=== PATIENT | female | born 1990 | race Caucasian/White ===

== ENCOUNTER 2018-04-24 12:54 | Emergency (ER) | payer OTHER ==
[~2018-04-24] VITALS: Ht 162.6 cm; Wt 100.0 kg
[2018-04-24 13:16] VITALS: Ht 162.6 cm; Wt 100.0 kg
[2018-04-24] MEDS ORDERED: TORADOL10 MG PO (14:52)
[2018-04-24 15:11] VITALS: BP 127/95
== END 2018-04-24 15:11 | disposition home or self-care (01) ==
LOC: D.ER 12:54
DX: S99.912A Unspecified injury of left ankle, initial encounter (principal); X50.1XXA Overexertion from prolonged static or awkward postures, initial encounter; Y93.89 Activity, other specified; Y92.019 Unspecified place in single-family (private) house as the place of occurrence of the external cause

== ENCOUNTER 2019-04-22 04:26 | Emergency (ER) | payer MEDICAID ==
[~2019-04-22 04:26] MED LIST: TORADOL10 MG PO
[2019-04-22 04:30] VITALS: BP 108/78; BMI 39.5
[2019-04-22] MEDS ORDERED: TIROSINT125 MCG PO (04:31)
[2019-04-22] MEDS ORDERED: METOPROLOL TART50 MG PO (04:31)
[2019-04-22] MEDS ORDERED: SULFAMETHOXAZOL1 TA3 PO (04:32)
[2019-04-22] MEDS ORDERED: VITAMIN D250000 UNIT PO (04:32)
[2019-04-22] MEDS ORDERED: FLAGYL500 MG PO (04:32)
[2019-04-22] MEDS ORDERED: NAPROSYN500 MG PO (05:17)
== END 2019-04-22 05:36 | disposition home or self-care (01) ==
LOC: D.ER 04:26
DX: G56.01 Carpal tunnel syndrome, right upper limb (principal)

== ENCOUNTER 2020-04-11 19:33 | Inpatient (IN) | payer MEDICAID ==
[~2020-04-11] VITALS: Ht 165.1 cm; Wt 114.1 kg
[~2020-04-11 19:33] MED LIST changes: +FLAGYL500 MG PO; +METOPROLOL TART50 MG PO; +NAPROSYN500 MG PO; +SULFAMETHOXAZOL1 TA3 PO; +TIROSINT125 MCG PO; +VITAMIN D250000 UNIT PO
[2020-04-11] MEDS ORDERED: PROCARDIA10 MG PO (20:13)
[2020-04-11] MEDS ORDERED: GLYBURIDE5 M1 PO (20:14)
[2020-04-11] MEDS ORDERED: BAYER CHEWABLE81 MG PO (20:15)
[2020-04-11] MEDS ORDERED: PRENAVITE1 TAB PO (20:15)
[2020-04-11 20:33] VITALS: BP 136/85; Ht 165.1 cm; Wt 114.1 kg
[2020-04-11 21:13] LABS: HEMATOCRIT 38.4 % (36.0-48.0); HEMOGLOBIN 12.7 g/dL (12-16); MCH 27.8 pg (26.0-34.0); MCHC 33.1 g/dL (31.0-37.0); MEAN PLATELET VOLUME 10.2 fL (7.4-10.4); RBC 4.57 10x6/uL (4.00-5.40); RDW 13.4 % (11.5-14.5); WBC 8.7 10x3/uL (4.8-10.8)
[2020-04-11 21:32] LABS: CALC OSMOLALITY 274 mosm/kg (275-300); CALCIUM 8.8 mg/dL (8.5-10.1); CARBON DIOXIDE 19.4 mmol/L (21.0-32.0); CHLORIDE - SERUM 106 mmol/L (98-107); CREATININE - SERUM 0.7 mg/dL (0.6-1.3); GLUCOSE 96 mg/dL (74-106); POTASSIUM - SERUM 3.5 mmol/L (3.5-5.1); SODIUM 137 mmol/L (136-145); UREA NITROGEN 14 mg/dL (7-18); eGFR NON AFRICAN AMERICAN > 90 mL/min (90-120)
[2020-04-11 21:34] LABS: BILIRUBIN NEGATIVE (NEGATIVE); GLUCOSE NEGATIVE (NEGATIVE); KETONE NEGATIVE (NEGATIVE); NITRITE NEGATIVE (NEGATIVE); SPECIFIC GRAVITY 1.025 (1.005-1.020); UROBILINOGEN NORMAL (NORMAL)
[2020-04-11 21:36] LABS: BACTERIA MODERATE /hpf (NEGATIVE); EPITHELIAL CELLS 0-5 /hpf (0-5); RED CELLS - URINE OCC /hpf (0-5)
[2020-04-11 21:36] LABS: ALT (SGPT) 19 U/L (10-68); URIC ACID 4.9 mg/dL (2.6-7.2)
[2020-04-11 22:09] LABS: APTT 27.3 SECONDS (22.8-39.4); INR 0.93 (0.85-1.17); PROTIME 12.5 SECONDS (11.6-15.0)
[2020-04-12] VITALS (11 sets, daily range): BP systolic 119–146; BP diastolic 64–94
--- NOTE | 2020-04-12 13:03 | NUR ---
LIVE MALE BABY @ 1252 PLACENTA @ 1933
--- NOTE | 2020-04-12 13:16 | NUR ---
PLACENTA NOT TO BE SENT PER DR BURLESON ABG NOT TO BE COLLECTED PER DR BURLESON
--- NOTE | 2020-04-12 14:06 | NUR ---
1402 - PT PERIPAD CHANGED, FIRST ONE 75% SATURATED
--- NOTE | 2020-04-12 14:15 | NUR ---
TO ROOM 1273 VIA BED ROOM RR. AWAKE AND VERBAL RESPONSES APPRO TO QUESTIONS. MOVES UPPER EXTREMITIES AT WILL. IV RT HAND -UP 1000CC NS WITH PITOCIN 20 UNITS AT 125CC/HR. ABD DRESSING PRESENT- LOWER ABD- CD&I. FUNDUS UU-FIRM WITH MASSAGE. SMALL LOCHIA NOTED ON PAD. ICE CAP TO ABD. SCD'S PLACED. GARRISON WITH 100CC URINE IN BAG. MED FOR PAIN PER ANESTHESIA.
--- NOTE | 2020-04-12 14:38 | NUR ---
REQUESTING DIET SPRITE. ALSO RATES PAIN A 9 ON SCALE OF 0-10.
--- NOTE | 2020-04-12 14:38 | NUR ---
FUNDUS MASSAGED- SMALL CLOTS. SM TO MOD LOCHIA-ADRIA PADS CHANGED.
--- NOTE | 2020-04-12 14:45 | NUR ---
Syd OBRIEN RN IN ROOM -FUNDUS UU- MUCOUS BLOOD DISCHARGE SM AMT WITH MASSAGE. PT CO PAIN- CRAMPING -REQUESTING PAIN MEDICATION-RATES PAIN A 10 ON SCALE OF 0-10.
--- NOTE | 2020-04-12 15:02 | NUR ---
SMALL CLOT X1 ON PAD. STATES THAT PAIN IS BETTER. RATES PAIN A 4 ON SCALE OF 0-10.
--- NOTE | 2020-04-12 15:31 | NUR ---
FUNDUS UU-FIRM. SMALL LOCHIA NOTED ON PAD WITH CLOT [id number]. PADS CHANGED AND PERINEAL AREA CLEANSED. STATES THAT PAIN IS BETTER. BABY TO BREAST.
--- NOTE | 2020-04-12 16:23 | NUR ---
pt states that bp was taken on her leg at 1604. bp rechecked and 135/81.
--- NOTE | 2020-04-12 16:30 | NUR ---
entered room- pt has cpap on herself and awakens when enter.states she wants to sleep. small to mod lochia noted on kenneth pad. fundal massage- fundus divated slighty to lt side but post massage more midline and uu. no clots noted. toñito man rn also at bedside.
--- NOTE | 2020-04-12 16:38 | NUR ---
clear liq diet served.
--- NOTE | 2020-04-12 16:57 | NUR ---
DR BURLEOSN IN UNIT- REPORT OF URINE OUTPUT DOWN PAST HOUR TO 15CC, LOCHIA, FUNDUS DIVATED TO LT SIDE. NEW ORDER RECEIVED. DR BURLESON STATES DO NOT NEED TO REPEAT FSBS.
--- NOTE | 2020-04-12 17:24 | NUR ---
sm to mod mucous/lochia- clot x1.
--- NOTE | 2020-04-12 18:10 | NUR ---
infant at breast at this time. no requests.
--- NOTE | 2020-04-12 18:40 | NUR ---
noted iv in rt hand infiltrated- d/c and pressure held. iv restarted lt hand using 20g cath. iv fluids of ns with pitocin 20units restarted at 125cc/hr per pump. lr bolus complete.
--- NOTE | 2020-04-12 19:00 | NUR ---
REPORT RECEIVED FROM AM SHIFT TO ASSUME PT CARE.
--- NOTE | 2020-04-12 19:15 | NUR ---
PATIENT CALLED OUT FOR PAIN MEDICINE AT THIS TIME
--- NOTE | 2020-04-12 19:30 | NUR ---
DILAUDID GIVEN PER PT REQUEST, SEE EMAR.
--- NOTE | 2020-04-12 19:32 | NUR ---
SHIFT ASSESSMENT COMPLETED, SEE FLOWSHEET
--- NOTE | 2020-04-12 19:45 | NUR ---
SANDWICH TRAY AND DIET COKE PROVIDED PER PT REQUEST.
--- NOTE | 2020-04-12 20:30 | NUR ---
PT REC'D SITTING UP HOLDING , FUNDUS FIRM, U-1, LOCHIA SMALL, ADRIA PADS CHANGED, UNDER PADS CHANGED, GARRISON UROMETER EMPTIED W/ 125ML RAMIN COLORED URINE IN CHAMBER, POC DISCUSSED FOR THE NIGHT W/O SIGNS OF DISTRESS
--- NOTE | 2020-04-12 21:22 | NUR ---
PT HEPATOLOGY PHYSICIAN LIGHT, IV BEEPING, NEW BAG OF NS WITH PITOCIN HUNG VIA PUMP INFUSING AT 125 ML/HR, PT DENIES NEEDS AT THIS TIME, FOB HOLDING
--- NOTE | 2020-04-12 22:15 | NUR ---
PT HOLDING INFANT, RATES INC PAIN 02/23, INFORMED PT THAT PAIN MED WILL BE DUE ABOUT 11:30PM, PT VERBALIZES UNDERSTANDING, STATES "THAT'S FINE", PT REQUESTED AND SERVED FRESH H20, DENIES FURTHER NEEDS, FOB FILLING OUT NSY PAPERWORK
[2020-04-13 00:14] VITALS: BP 127/60
--- NOTE | 2020-04-13 00:14 | NUR ---
PT GETTING READY TO FEED , ADM TORADOL SIVP PER MD ORDERS, SEE EMAR, INFORMED PT WILL D/C GARRISON AND SALINE LOCK IV SHORTLY, PT VERBALIZES UNDERSTANDING, WILL BEGIN PO PAIN MED AT THIS TIME, VS OBTAINED, FOB HOLDING
--- NOTE | 2020-04-13 00:23 | NUR ---
ADM PERCOCET PER MD ORDERS, SEE EMAR, WITH FRESH H20
--- NOTE | 2020-04-13 01:10 | NUR ---
PT AROUSES TO OPENING OF DOOR, IV CONVERTED TO SALINE LOCK, FLUSHED WITH 10 MLS OF NS WITH NO DIFFICULTY, GARRISON CATH REMOVED, TIP INTACT, EMPTIED 1100 MLS OF DARK YELLOW URINE FROM GARRISON BAG, PT INST ON AND VERBALIZES UNDERSTANDING OF USING CALL LIGHT FOR ME TO COME HELP HER FOR HER FIRST TIME UP, ADRIA CARE DONE WITH WET WARM WASH CLOTHS, MOD BLEEDING NOTED WITH NO CLOTS, WHITE CHUX AND ADRIA PAD CHANGED, FRESH ICE PACK TO ABD, PT INQUIRES ABOUT SCD'S, INFORMED PT THAT THEY HAD TO STAY ON WHILE IN BED, PT VERBALIZES UNDERSTANDING, PT REPORTS "PAIN IS BETTER", DID NOT RATE WITH A NUMBER, PT JUST READY TO GET SOME REST, DENIES FURTHER NEEDS, IN OPEN CRIB CART NEXT TO FOB ON COUCH
--- NOTE | 2020-04-13 01:40 | NUR ---
PATIENT ASSISTED UP TO BATHROOM, DENIES NEEDING TO VOID. TOWELS PLACED ON FLOOR TO AVOID FALLS. PT TO SHOWER, PROVIDED WITH SOAP,SHAMPOO AND WASH RAGS. WELL CLEAN TOWELS AND GOWN. ENCOURAGED TO USE SHOWER CHAIR AND CALL WITH ANY NEEDS.
--- NOTE | 2020-04-13 02:00 | NUR ---
PATIENT FINISHED SHOWERING, CLEAN PADS AND PANTIES PLACED, DRESSING WAS REMOVED IN SHOWER. INCISION IS WELL APPROXIAMATED, CLOSED WITH GLUE. NO REDNESS, SWELLING OR DRAINAGE NOTED. PT PROVIDED WITH ICE PACK AND ICE WATER AT THIS TIME. NO FURTHER NEEDS IDENTIFIED. WILL CONTINUE TO MONITOR
[2020-04-13 04:39] VITALS: BP 114/73
--- NOTE | 2020-04-13 04:40 | NUR ---
PATIENT RESTING QUIETLY WITH EYES CLOSED. EASILY AROUSED TO VERBAL. PT STATES THAT HER PAIN IS A 6/10. PERCOCET 10/325 MG PO PER MD ORDERS. SEE EMAR.
[2020-04-13 07:13] LABS: RAPID PLASMA REAGIN Non Reactive (Non Reactive)
[2020-04-13 08:30] VITALS: BP 132/60
--- NOTE | 2020-04-13 08:35 | NUR ---
DR. RUSHING ON UNIT, TO ROOM TO SPEAK WITH PT. MD EXAMINES PT. LOW TRANSVERSE INCISION C/D/I. SEE EMAR FOR ALL MEDS ADM BY THIS RN. PT DENIES NEEDS AT THIS TIME. SR UP X2, CALL LIGHT AND PHONE WITHIN REACH.
--- NOTE | 2020-04-13 10:10 | NUR ---
PT AMBULATORY IN ROOM AT THIS TIME. PT DENIES NEEDS AT THIS TIME. SRUP X2, CALL LIGHT AND PHONE WITHIN REACH.
[2020-04-13 11:46] LABS: BASOPHILS 0.1 % (0-2); EOSINOPHILS 0.5 % (0-7); IMMATURE GRANULOCYTES 0.3 % (0-5); LYMPHOCYTES 10.3 % (15-50); MCH 27.4 pg (26.0-34.0); MCHC 32.3 g/dL (31.0-37.0); MCV 84.7 fL (80.0-100.0); MEAN PLATELET VOLUME 9.5 fL (7.4-10.4); MONOCYTES 10.2 % (2-11); NEUTROPHILS 78.6 % (40-80); PLATELET COUNT 203 10x3/uL (130-400); RDW 13.6 % (11.5-14.5); WBC 9.1 10x3/uL (4.8-10.8)
[2020-04-13 11:50] LABS: HEMATOCRIT 28.8 % (36.0-48.0); HEMOGLOBIN 9.3 g/dL (12-16)
--- NOTE | 2020-04-13 12:00 | MORECARE ---
CASE MANAGEMENT DISCHARGE SUMMARY PATIENT: YADIRA MORALES UNIT: [id number] ADM DATE: 04/11/20 AGE: 29 : 88 SEX: F ROOM/BED: D.1273 AUTHOR: MANA LUNA PHYSICIAN: REFERRING PHYSICIAN: PETER BURLESON MD DATE OF SERVICE: 04/13/20 Discharge Plan Patient Name: YADIRA MORALES Facility: [facility]:[place] : 1990 Planned Disposition: Home Anticipated Discharge Date: 04/16/20 Discharge Date: Expected LOS: 5 Initial Reviewer: [email or web address] Initial Review Date: 04/11/2020 Generated: 04/13/20 12:59 pm Patient Name: YADIRA MORALES Page [phone] at 1200 All edits/amendments must be made on the electronic document DICTATION DATE: 04/13/20 1159 WIRE ROPE SALES REPRESENTATIVE: DM 04/13/20 1159 RPT#: [id number] DC DATE: STATUS: ADM IN [facility] [address] [place] [address] END OF REPORT
--- NOTE | 2020-04-13 12:20 | NUR ---
TO PT'S ROOM, PT IS SITTING ON SOFA, WITH LEGS PULLED UP, PT DENIES NEEDS AT THIS TIME, DENIES NEEDING PAIN MEDICATION. PT STATES SHE HAS PASSED GAS. DENIES ALL OTHER NEEDS AT THIS TIME.
--- NOTE | 2020-04-13 14:45 | NUR ---
PT AMBULATORY IN ROOM TENDING TO INFANT. PT REQUESTS PAIN MEDICATION. SEE EMAR FOR ALL MEDS ADM BY THIS RN. PT DENIES ALL OTHER NEEDS. SRUP X2, CALL LIGHT AND PHONE WITHIN REACH.
[2020-04-13 19:46] VITALS: BP 128/74
--- NOTE | 2020-04-13 19:46 | NUR ---
SHIFT ASSESSMENT COMPLETED, SEE FLOWSHEET. PATIENT LYING IN BED WITH SIGNIFICANT OTHER, STATES THAT HER BLEEDING IS LIGHT AND SHE HAS PLENTY OF PADS AND PANTIES. INCISION WELL APPROXIAMATED, CLOSED WITH GLUE, NO SWELLING,REDNESS OR DRAINAGE NOTED. PT DENIES NEEDS AT THIS TIME, WILL CONTINUE TO MONITOR
--- NOTE | 2020-04-13 20:27 | NUR ---
PERCOCET 10/325MG PO AND TORADOL 10MG PO PER MD ORDERS AND PT REQUEST. SEE EMAR. ICE WATER PROVIDED, NO FURTHER NEEDS IDENTIFIED.
--- NOTE | 2020-04-13 21:19 | NUR ---
PATIENT SITTING ON COUCH INFANT. DENIES NEEDS.WILL CONTINUE TO MONITOR.
--- NOTE | 2020-04-13 21:23 | NUR ---
PATIENT CALLED OUT LANDSCAPE PAINTER CHAN, UPON ENTERING THE ROOM THE PT NOTED TO BE STANDING IN THE BATHROOM STATING THAT SHE IS HAVING SHARP PAIN IN HER ABDOMEN. INCISION INSPECTED, INTACT WITH GLUE. BLEEDING NOTED TO BE SCANT RUBRA. WILL BRING PT MEDICATION FOR GAS PAIN.
--- NOTE | 2020-04-13 21:28 | NUR ---
SIMETHICONE ADMINISTERED. SEE EMAR.
--- NOTE | 2020-04-13 21:30 | NUR ---
PATIENT ENCOURAGED TO AMBULATE TO RELIEVE THE GAS PAIN
--- NOTE | 2020-04-13 21:45 | NUR ---
PATIENT AND SIGNIFICANT OTHER AMBULATING IN [place] WITH IN OPEN CRIB. TO NURSERY AND PT AND SIGNIFICANT OTHER CONTINUE TO AMBULATE. PT STATES THAT THE PAIN GOES AWAY WHEN SHE WALKS.
--- NOTE | 2020-04-13 21:56 | NUR ---
PATIENT BACK TO ROOM WITH AT THIS TIME. NO NEEDS IDENTIFIED. WILL CONTINUE TO MONITOR.
--- NOTE | 2020-04-14 00:10 | NUR ---
SHIRT AND BLANKET PROVIDED TO MOTHER FOR , STATES THAT SHE FED HIM A BOTTLE AND HE THREW IT ALL UP. PT TEACHING COMPLETED ON BOTTLE FEEDING AND BREAST FEEDING AT THIS TIME. PT STATES THAT SHE IS GOING TO GET SOME SLEEP AND WILL TRY TO BREASTFEED AT 0100, ALSO REQUESTS A PAIN PILL AT THAT TIME.
--- NOTE | 2020-04-14 00:30 | NUR ---
PT WORRIED THAT HER STITCHES ARE RIPPING ON THE INSIDE. INCISION INSPECTED, SMALL SPOT OF DRIED BLOOD NOTED FROM LEFT SIDE OF INCISION. SPOT CLEANED AND PERIPAD PLACED ON ABDOMEN TO DECREASE MOISTURE. WILL MONITOR FOR FURTHER BLEEDING.
--- NOTE | 2020-04-14 01:10 | NUR ---
percocet 10/325mg and simethicone 80 mg po administered at this time per pt request.
--- NOTE | 2020-04-14 01:14 | NUR ---
traci provided per pt request. states that she will take it in a minute due to infant at this time.
--- NOTE | 2020-04-14 02:30 | NUR ---
PATIENT SLEEPING, WILL HOLD TORADOL ADMINISTRATION.
--- NOTE | 2020-04-14 04:15 | NUR ---
PATIENT RESTING QUIETLY WITH EYES CLOSED, RESPIRATIONS EVEN AND NON LABORED. CPAP IN PLACE. WILL CONTINUE TO MONITOR
--- NOTE | 2020-04-14 06:30 | NUR ---
PATIENT SLEEPING WITH CPAP IN PLACE. NO DISTRESS NOTED. WILL CONTINUE TO MONITOR.
--- NOTE | 2020-04-14 07:20 | NUR ---
ASSUMED CARE OF THIS PATIENT. SITTING UP IN BED GETTING READY TO EAT BREAKFAST. ASKED ABOUT BABY WHO IS CURRENTLY IN NURSERY. 05/25 LOW ABDOMINAL ACHING. DOES NOT DESIRE PAIN MEDICATION NOW BUT WOULD LIKE PERCOCET AND TORADOL WHEN IT IS DUE. READY TO GO HOME. VISITOR ON COUCH. NON-SMOKER, 0+ RUBELLA IMMUNE, DTAP STATUS UNKOWN. DESIRES TDAP IF IT IS DUE. SLEEPS USING CPAP. WILL COMPLETE SHIFT ASSESSMENT AFTER BREAKFAST.
[2020-04-14 08:16] VITALS: BP 125/69
--- NOTE | 2020-04-14 08:22 | NUR ---
PERCOCET 10 MG GIVEN WITH SCHEDULED TORADOL FOR 05/25 INCISIONAL ACHING. DISCUSSED ABDOMINAL BINDER, DECLINES AT THIS TIME. READY TO GO HOME. FOB AND IN ROOM. TO CALL IF ANYTHING IS NEEDED.
--- NOTE | 2020-04-14 10:19 | NUR ---
SITTING UP ON COUCH . DR RUSHING IN ROOM. DR BARNES ALSO VISITED. PAIN IS BETTER, NOW 5/10 WHICH SHE SAYS IS LIVABLE. DENIES NEEDING ANYTHING AT THIS TIME. ANTICIPATE DC HOME TODAY.
[2020-04-14] MEDS ORDERED: PERCOCET 5-3251 TAB PO (11:48)
--- NOTE | 2020-04-14 12:03 | NUR ---
SITTING ON COUCH WAITING FOR DISCHARGE. GUIDE SETTER HAS VISITED AND ORDERS FOR DC HAVE BEEN RECEIVED. WILL DC HOME WITH . DESIRES TDAP.
--- NOTE | 2020-04-14 12:20 | NUR ---
TDAP GIVEN IN RIGHT DELTOID WITHOUT DIFFICULTY. VERBAL AND WRITTEN DC INSTRUCTIONS REVIEWED INCLUDING POST OP CARE, S&S INFECTION, DANGER SIGNS, PP DEPRESSION, BREASTCARE/, BC OPTIONS, MEDICATION ADMINISTRATION AND FOLLOW-UP. TO CALL THURSDAY TO SCHEDULE TWO WEEK APPOINTMENT. SAYS USING TEA BAGS AND LANOLIN HAVE SEEMS TO HELP NIPPLE SORENESS. HAS BEED DC'D. WAITING UNTIL SHE FINISHES CURRENT THEN WILL DC VIA WHEELCHAIR TO CAR.
--- NOTE | 2020-04-14 13:10 | NUR ---
DC'D VIA WHEELCHAIR TO CAR. IN CARSE[place]. FOB DRIVING. ALL BELONGINGS REMOVED FROM ROOM. HAS DC INSTRUCTIONS AND PRESCRIPTION.
--- NOTE | 2020-04-16 08:39 | MORECARE ---
CASE MANAGEMENT DISCHARGE SUMMARY PATIENT: YADIRA MORALES UNIT: [id number] ADM DATE: 04/11/20 AGE: 29 : 88 SEX: F ROOM/BED: D.1273 AUTHOR: MANA LUNA PHYSICIAN: REFERRING PHYSICIAN: PETER BURLESON MD DATE OF SERVICE: 04/16/20 Discharge Plan Patient Name: YADIRA MORALES Facility: [facility]:[place] : 1990 Planned Disposition: Home Anticipated Discharge Date: 04/16/20 Discharge Date: 04/14/2020 Expected LOS: 5 Initial Reviewer: [email or web address] Initial Review Date: 04/11/2020 Generated: 04/16/20 9:39 am Last DP export: 04/13/20 11:00 a Patient Name: YADIRA MORALES Page [id number] at 0839 All edits/amendments must be made on the electronic document DICTATION DATE: 04/16/20 0839 TRICK RODEO RIDER: ANILA 04/16/20 0839 RPT#: [id number] DC DATE:04/14/20 STATUS: DIS IN [place] [id number] [place] [address] END OF REPORT
--- NOTE | 2020-04-16 12:19 | OP ---
PATIENT NAME: YADIRA MORALES MEDICAL RECORD: [id number] :[birth year] LOCATION:[place] [id number] ADMISSION DATE:04/11/20 SURGEON: CHEKO BURLESON MD DATE OF OPERATION: 04/12/2020 PREOPERATIVE DIAGNOSES: 1. Gestational diabetes. 2. Chronic hypertension. 3. at 39 weeks' gestation. 4. Breech presentation. POSTOPERATIVE DIAGNOSES: 1. Gestational diabetes. 2. Chronic hypertension. 3. at 39 weeks' gestation. 4. Breech presentation. PROCEDURE: Primary low transverse section. SURGEON: Cheko Burleson MD ANESTHESIOLOGIST: Ronaldo Stahl MD ANESTHESIA: Spinal. FINDINGS: Viable male infant in nico breech presentation with Apgars of 8 and 9. Weight is 7 pounds and 15 ounces. Unremarkable uterus, tubes and ovaries. SPECIMEN REMOVED: Placenta. SPECIMEN DISPOSITION: Discarded. ESTIMATED BLOOD LOSS: Less than or equal to 750 cc. FLUIDS: 1700 cc of lactated Ringer's. URINE OUTPUT: 50 cc of clear urine. COMPLICATIONS: None. DRAINS: Olson to gravity. INDICATION: The patient is a 29-year-old primiparous female with diabetes, as well as chronic hypertension. The patient is consented for induction of labor. After second dose of Cytotec, the patient was thought to be breech. An ultrasound was requested. Ultrasound confirms presence of a breech presentation. The patient is consented for a primary low transverse section. DESCRIPTION OF PROCEDURE: After informed consent was assured, the patient was taken to the operating room where anesthetic was obtained. The patient was now placed in the leftward lateral tilt and prepped and draped. After assessment of the anesthetic and it found to be adequate, an incision was made on the left lower abdomen and carried down to the underlying layer of the fascia. The fascia was opened in the midline and extended out laterally. Rectus bellies OPERATIVE REPORT [id number] YADIRA MORALES were dissected free superiorly and inferiorly, then in the midline. The peritoneum was entered sharply. Kin retractor was now inserted and tightened. DeLee all-purpose retractor was inserted and bladder flap developed. The bladder blade was now reinserted and low transverse hysterotomy was performed and the infant was delivered on to the abdomen atraumatically using the standard breech extraction maneuvers. The placenta was delivered via Crede maneuver and the uterus exteriorized, cleared of all clot and debris. The uterus was now closed with a running stitch of chromic. A single interrupted stitch was placed on the right corner for hemostasis. Posterior cul-de-sac irrigated and the uterus returned to the abdomen and inspected and adequate hemostasis has been achieved. The rectus bellies were reapproximated in midline. The fascia was closed with looped PDS. Subcutaneous tissues were irrigated, bleeding vessels cauterized, and the skin reapproximated with a subcuticular stitch. Sterile dressings applied. Sponge, lap, needle counts were correct times 2. The patient went to the recovery area in stable condition. TRANSINT:[id number] Voice Confirmation ID: [id number] DOCUMENT ID: [id number] CHEKO BURLESON MD at 1219 CC: [id number] DICTATION DATE: 04/12/20 1332 MAINTENANCE GROUNDSKEEPER: 04/12/20 1713 DIS IN 04/14/20 [place] [address] [id number] [place] [address]
== END 2020-04-14 13:10 | disposition home or self-care (01) | DRG 787 ==
LOC: D.LD 19:33
PROVIDERS: Student in an Organized Health Care Education/Training Program; ADMIT Obstetrics & Gynecology; ATTEND Obstetrics & Gynecology
PROC: 10D00Z1 Extraction of Products of Conception, Low, Open Approach (ICD-10-PCS; principal; 2020-04-12 12:30)
DX: O24.429 Gestational diabetes mellitus in childbirth, unspecified control (principal); O10.92 Unspecified pre-existing hypertension complicating childbirth; Z3A.39 39 weeks gestation of pregnancy; Z37.0 Single live birth; O32.1XX0 Maternal care for breech presentation, not applicable or unspecified

== ENCOUNTER 2021-02-09 23:47 | Emergency (ER) | payer OTHER ==
[~2021-02-09] VITALS: Ht 165.1 cm; Wt 106.4 kg
[~2021-02-09 23:47] MED LIST changes: +BAYER CHEWABLE81 MG PO; +BIRTH CONTROL MED; +CELEXA40 MG PO; +GLYBURIDE5 M1 PO; +PERCOCET 5-3251 TAB PO; +PRENAVITE1 TAB PO; +PROCARDIA10 MG PO
[2021-02-09 23:50] VITALS: BP 131/68; Ht 165.1 cm; Wt 106.4 kg
[2021-02-10] MEDS ORDERED: TORADOL10 MG PO (00:21)
[2021-02-10] MEDS ORDERED: GABAPENTIN300 MG PO (00:21)
== END 2021-02-10 01:02 | disposition home or self-care (01) ==
LOC: D.ER 23:47
DX: M25.571 Pain in right ankle and joints of right foot (principal); M54.16 Radiculopathy, lumbar region; I10 Essential (primary) hypertension